=== PATIENT | male | born 1975 | race Caucasian/White ===

== ENCOUNTER → 2024-07-20 | Outpatient (CLI) | payer BC, SELFPAY ==
[2024-07-20 14:19] LABS: Collection Type, Urine Clean Catch; RBC,Urine 0 /hpf (0-3); Squamous Epithelial Cell,Urine 0 /hpf (0-5)
[2024-07-20 15:27] LABS: Bilirubin,Urine Negative (Negative); Blood,Urine Negative (Negative); Clarity,Urine Clear (Clear/Hazy); Color,Urine Colorless (Lt Yel-Yel); Glucose, Urine Negative (Negative); Ketones,Urine Negative (Negative); Leukocyte Esterase,Urine Negative (Negative); Nitrite,Urine Negative (Negative); PH,Urine 5.5 (5.0-7.0); Protein,Urine Negative (Neg - Trace); Specific Gravity,Urine 1.012 (1.001-1.035); Urobilinogen,Urine Negative mg/dL (0.0-1.0); WBC,Urine < 1 /hpf (0-5)
== END | disposition home or self-care (01) ==
LOC: SLDO 14:15
PROVIDERS: Referring Provider Family Medicine; Visit Provider Family Medicine
DX: N39.0 Urinary tract infection, site not specified (principal)
CPT/HCPCS: 81001; 87086

== ENCOUNTER → 2024-08-29 | Outpatient (CLI) | payer BC, SELFPAY ==
[2024-08-29 09:04] LABS: Anion Gap 7 (7-16); BUN/Creatinine Ratio 21 Ratio (12-20); Blood Urea Nitrogen 25 mg/dL (9-23); Calcium 9.7 mg/dL (8.3-10.6); Chloride 105 mMol/L (98-107); Creatinine (Component) 1.2 mg/dL (0.6-1.3); Glucose 103 mg/dL (74-106); Osmolality,Calculated 281 (275-295); Potassium 4.6 mMol/L (3.4-5.1); Sodium 139 mMol/L (136-145); eGFR > 60 See Note
== END | disposition home or self-care (01) ==
PROVIDERS: PCP Family Medicine; Referring Provider Nurse Practitioner Family; Visit Provider Nurse Practitioner Family
DX: I10 Essential (primary) hypertension (principal)
CPT/HCPCS: 36415; 80048

== ENCOUNTER → 2025-02-05 | Outpatient (CLI) | payer BC, SELFPAY ==
[2025-02-05 10:08] LABS: Collection Type, Urine Clean Catch; Squamous Epithelial Cell,Urine 0 /hpf (0-5)
[2025-02-05 10:31] LABS: Basophils # (Auto) 0.1 Thou/mm3 (0.0-0.2); Basophils % (Auto) 2 % (0-2.5); Eosinophils # (Auto) 0.1 Thou/mm3 (0.0-0.5); Eosinophils % (Auto) 3 % (0-10); Hematocrit 45.6 % (41.0-53.0); Hemoglobin 16.2 g/dL (13.5-16.0); Immature Granulocytes % (Auto) 0 % (0-0); Immature Granulocytes Auto 0.01 Thou/mm3 (0.00-0.00); Lymphocytes # (Auto) 2.3 Thou/mm3 (1.0-4.8); Lymphocytes % (Auto) 44 % (10-50); Mean Corpuscular HGB Conc 35.5 g/dl (31.0-37.0); Mean Corpuscular Hemoglobin 30.1 pg (25.0-35.0); Mean Corpuscular Volume 85 fL (80-100); Monocytes # (Auto) 0.3 Thou/mm3 (0.0-0.8); Monocytes % (Auto) 6 % (0-12); Neutrophils # (Auto) 2.4 Thou/mm3 (1.8-7.7); Neutrophils % (Auto) 46 % (37-80); Nucleated Red Blood Cell % 0 /100 WBC (0); Platelet Count 197 Thou/mm3 (140-440); RDW Standard Deviation 38.7 fL (35.1-43.9); Red Blood Count 5.39 Miln/mm3 (4.50-5.90); White Blood Count 5.3 Thou/mm3 (3.8-10.6)
[2025-02-05 10:41] LABS: Bilirubin,Urine Negative (Negative); Blood,Urine Negative (Negative); Clarity,Urine Clear (Clear/Hazy); Color,Urine Lt-Yellow (Lt Yel-Yel); Culture Indicated,Urine Not Indicated; Glucose, Urine Negative (Negative); Ketones,Urine Negative (Negative); Leukocyte Esterase,Urine Negative (Negative); Nitrite,Urine Negative (Negative); Protein,Urine Negative (Neg - Trace); RBC,Urine 1 /hpf (0-3); Specific Gravity,Urine 1.024 (1.001-1.035); Urobilinogen,Urine Negative mg/dL (0.0-1.0); WBC,Urine 1 /hpf (0-5)
[2025-02-05 10:48] LABS: Alanine Aminotransferase 50 U/L (10-49); Albumin, Serum 4.5 gm/dL (3.5-5.0); Albumin/Globulin Ratio 2.1 (1.2-2.2); Alkaline Phosphatase 91 U/L (46-116); Anion Gap 8 (7-16); Aspartate Amino Transferase 32 U/L (0-34); BUN/Creatinine Ratio 19 Ratio (12-20); Bilirubin,Total 0.9 mg/dL (0.3-1.2); Blood Urea Nitrogen 21 mg/dL (9-23); Calcium 9.2 mg/dL (8.3-10.6); Calcium (Corrected) 9.2 mg/dL (8.5-10.1); Carbon Dioxide 28.1 mMol/L (20.0-31.0); Chloride 105 mMol/L (98-107); Cholesterol 219 mg/dL (132-200); Creatinine (Component) 1.1 mg/dL (0.6-1.3); Globulin 2.1 gm/dL (2.3-3.5); Glucose 95 mg/dL (74-106); HDL Cholesterol 44 mg/dL (40-60); LDL Cholesterol,Calculated 148 mg/dL (0-130); Osmolality,Calculated 284 (275-295); Potassium 4.6 mMol/L (3.4-5.1); Sodium 141 mMol/L (136-145); Thyroid Stimulating Hormone 2.64 uIU/mL (0.55-4.78); Total Protein 6.6 gm/dL (5.7-8.2); Triglycerides 135 mg/dL (30-150); eGFR > 60 See Note
[2025-02-05 10:54] LABS: Prostate Specific Antigen 2.47 ng/mL (0-4.00)
[2025-02-05 10:55] LABS: Vitamin D 25 Hydroxy Total 33.9 ng/mL (7.3-40.2)
== END | disposition home or self-care (01) ==
LOC: COPL 09:35
PROVIDERS: PCP Family Medicine; Referring Provider Nurse Practitioner Family; Visit Provider Nurse Practitioner Family
DX: Z00.00 Encounter for general adult medical examination without abnormal findings (principal)
CPT/HCPCS: 36415; 80053; 80061; 81001; 82306; 84153; 84443; 85025

== ENCOUNTER → 2025-07-18 | Outpatient (CLI) | payer BC, SELFPAY ==
[2025-07-18 11:16] LABS: Alanine Aminotransferase 60 U/L (10-49); Albumin, Serum 4.7 gm/dL (3.5-5.0); Albumin/Globulin Ratio 2.9 (1.2-2.2); Alkaline Phosphatase 80 U/L (46-116); Anion Gap 10 (7-16); Aspartate Amino Transferase 41 U/L (0-34); BUN/Creatinine Ratio 13 Ratio (12-20); Bilirubin,Total 1.0 mg/dL (0.3-1.2); Blood Urea Nitrogen 14 mg/dL (9-23); Calcium 9.1 mg/dL (8.3-10.6); Calcium (Corrected) 9.1 mg/dL (8.5-10.1); Carbon Dioxide 23.9 mMol/L (20.0-31.0); Cardiac Risk Estimate 4.7 RATIO (4.0-6.7); Chloride 107 mMol/L (98-107); Cholesterol 188 mg/dL (132-200); Creatinine (Component) 1.1 mg/dL (0.6-1.3); Globulin 1.6 gm/dL (2.3-3.5); Glucose 93 mg/dL (74-106); HDL Cholesterol 40 mg/dL (40-60); LDL Cholesterol,Calculated 130 mg/dL (0-130); Osmolality,Calculated 281 (275-295); Potassium 4.3 mMol/L (3.4-5.1); Sodium 141 mMol/L (136-145); Total Protein 6.3 gm/dL (5.7-8.2); Triglycerides 88 mg/dL (30-150); eGFR > 60 See Note
== END | disposition home or self-care (01) ==
LOC: COPL 09:55
PROVIDERS: PCP Nurse Practitioner Family; Referring Provider Nurse Practitioner Family; Visit Provider Nurse Practitioner Family
DX: E78.2 Mixed hyperlipidemia (principal); R74.01 Elevation of levels of liver transaminase levels
CPT/HCPCS: 36415; 80053; 80061

== ENCOUNTER 2025-08-01 15:23 | Inpatient (IN) | payer BC, SELFPAY ==
[2025-08-01] VITALS (10 sets, daily range): BP systolic 126–164; BP diastolic 81–92; PULSE 63–80; RESP 16–96; TEMP 36.7–36.9; O2SAT 95–97; BMI 33.7; BMI 32.9
--- NOTE | 2025-08-01 15:33 | EKG_ITS ---
[facility] Test Date: 2025-08-01 Pat Name: BRET QUEVEDO Department: Room: - Gender: Male Media Assistant: : 1975 Requested By: Teja Montero (RENATO) Order Number: [id number] Reading MD: Teja Montero (FIREPERSON) Measurements Intervals [place] Rate: 79 P: 34 SD: 197 QRS: 17 QRSD: 117 T: 33 QT: 367 QTc: 422 Interpretive Statements SINUS RHYTHM WITH SINUS ARRHYTHMIA INCOMPLETE RIGHT BUNDLE BRANCH BLOCK [90+ ms QRS DURATION, TERMINAL R IN V1/V2, 40+ ms S IN I/aVL/V4/V5/V6] No previous ECG available for comparison /store/S0/[id number].pdf
--- NOTE | 2025-08-01 15:44 | XR_ITS ---
EXAMINATION: AP chest single view TECHNIQUE: AP portable upright chest single view Date and time: August 01, 2025, 1547 hours INDICATIONS: Shortness of breath today. FINDINGS: Normal heart size Lungs are clear. Osseous structures are intact IMPRESSION: No active disease
[2025-08-01 16:16] LABS: Basophils # (Auto) 0.1 Thou/mm3 (0.0-0.2); Basophils % (Auto) 2 % (0-2.5); Eosinophils # (Auto) 0.1 Thou/mm3 (0.0-0.5); Eosinophils % (Auto) 2 % (0-10); Hematocrit 46.2 % (41.0-53.0); Hemoglobin 16.1 g/dL (13.5-16.0); Immature Granulocytes Auto 0.01 Thou/mm3 (0.00-0.00); Lymphocytes # (Auto) 1.6 Thou/mm3 (1.0-4.8); Lymphocytes % (Auto) 32 % (10-50); Mean Corpuscular HGB Conc 34.8 g/dl (31.0-37.0); Mean Corpuscular Hemoglobin 29.7 pg (25.0-35.0); Mean Corpuscular Volume 85 fL (80-100); Monocytes # (Auto) 0.2 Thou/mm3 (0.0-0.8); Monocytes % (Auto) 4 % (0-12); Neutrophils # (Auto) 3.0 Thou/mm3 (1.8-7.7); Neutrophils % (Auto) 60 % (37-80); Nucleated Red Blood Cell # 0.00 Thou/mm3 (0.00-0.00); Nucleated Red Blood Cell % 0 /100 WBC (0); Platelet Count 202 Thou/mm3 (140-440); RDW Standard Deviation 37.8 fL (35.1-43.9); Red Blood Count 5.43 Miln/mm3 (4.50-5.90); White Blood Count 5.1 Thou/mm3 (3.8-10.6)
--- NOTE | 2025-08-01 16:16 | EDNOTE_ITS ---
ED Chest Pain RME/HPI General Chief Complaint: Chest Pain Stated Complaint: SENT BY PCP FOR CP Time Seen by Provider: 08/01/25 15:43 Arrival date/time: 08/01/25 15:23 RME / HPI RME / HPI narrative: 50 year old male with history of hypertension presents to the ED referred by his PCP for evaluation of chest pain today. Patient states his pain began while walking at work. Described as sharp in sensation, rating 5/10 in severity at its worst. Located most to the center of his chest with radiation up to his neck, lasting a few minutes. States he consulted his PCP who performed an EKG and labs in office showing abnormalities and advised to come to the ED for further evaluation. Denied any associated sweating, cough, shortness of breath, abdominal pain, nausea, or vomiting. Though does report dizziness and headache (chronically) and unchanged from his baseline. Denies any known cardiac history. Denies any leg swelling. Since arriving to the ED, patient states his pain is 0/10. Denies alcohol or drug use. Related Data Previous Rx's ?Medication ?Instructions ?Recorded Oxycodone/Acetaminophen (Percocet) 1 tab PO Q6HR PRN P AIN SCALE 4-6 07/22/16 (Moderate #20 tabs Allergies Allergy/AdvReac Type Severity Reaction Status Date / Time NKA* Allergy Uncoded 08/01/25 15:25 Review of Systems Review of Systems Systems Reviewed: All systems reviewed, normal except as documented Past Medical History Past Medical History CARDIAC: Positive Hypertension Surgical History SURGICAL: Positive Hip Sx and of Back Surgery Social History SMOKING STATUS: Never smoker ED Exam Narrative Physical exam: Constitutional: Awake, alert, nontoxic, no acute distress HEENT: Normocephalic, atraumatic, extraocular movements intact. Neck: Supple CV: Regular rate and rhythm, no murmurs/rubs/gallops Lungs: Clear to auscultation BL, no respiratory distress. Abd: Soft, NT, ND, no HSM noted to palpation Extremities: No deformities, no edema noted Neuro: AAOx3, CN 2-12 GIBL, no acute neuro deficit noted. Skin: Warm, dry, intact Course Course Course Narrative: 1651h: I spoke with medical accountant Dr. Rosales. Discussed patients PMHx, HPI, ED course, exam findings, labs, and radiology results. He agrees to consult. 1655h: I spoke with hospitalist team B for admission. Quality Measures none Orders Category Date Time Status COVID-19 Screening Questionnaire NOW Care 08/01/25 16:54 Active Sales Process Manager NOW Care 08/01/25 15:33 Active Decision to Admit X1 Care 08/01/25 16:54 Completed EKG (ED ONLY) *Do not use* NOW Care 08/01/25 15:33 Completed EKG (ED Only) Stat Exams 08/01/25 15:33 Draft XR chest 1V portable Stat Exams 08/01/25 15:44 Completed B-Type Natriuretic Peptide Stat Lab 08/01/25 16:05 Completed CBC Stat Lab 08/01/25 16:05 Completed Comprehensive Metabolic Panel Stat Lab 08/01/25 16:05 Completed Drug Screen,Urine Stat Lab 08/01/25 15:33 Ordered Magnesium Stat Lab 08/01/25 16:05 Completed Partial Thromboplastin Time Stat Lab 08/01/25 16:05 Completed Prothrombin Time with INR Stat Lab 08/01/25 16:05 Completed Troponin I Stat Lab 08/01/25 16:05 Completed Urinalysis, C/S if Indicated Stat Lab 08/01/25 15:33 Ordered Aspirin Chew Med 08/01/25 16:48 Discontinued 324 mg PO X1 ONE Vital Signs Vital signs: Vital Signs Temperature 98.1 F 08/01/25 15:43 Pulse Rate 80 08/01/25 15:43 Respiratory Rate 18 08/01/25 15:43 Blood Pressure 144/83 H 08/01/25 15:43 Pulse Oximetry (%) 96 08/01/25 15:43 Oxygen Delivery Method Room Air 08/01/25 15:43 Pulse ox is 96% on room air which is adequate. Chest Pain MDM Narrative MDM Narrative:: Marisol Tobar am scribing for and in the presence of Dr. Salas. Patient data External records reviewed:: None (No previous records for review ) Clinical information provided by:: patient Social determinants that could affect healthcare access:: none Patient has the following chronic illnesses:: Hypertension How is presenting disease/condition affected by chronic disease/condition?: exacerbated by Evaluation data The following diagnostics were reviewed and interpreted by me:: lab results, radiology exam(s) and EKG tracing(s) (EKG @ 15:39h, interpreted by me, sinus rhythm, rate 79, incomplete right bundle branch block, ST depression in V3, T- wave flattening in lead III. ) Lab and/or radiology exams considered but not ordered:: None Interpretation Summary: Ordering Physician: Winston GARY),Teja GROSS Date of Service: 08/01/25 Procedure(s): XR chest 1V portable Accession Number(s): [id number] cc: Winston GARY),Teja GROSS; Simón Morris MD~ EXAMINATION: AP chest single view TECHNIQUE: AP portable upright chest single view Date and time: August 01, 2025, 1547 hours INDICATIONS: Shortness of breath today. FINDINGS: Normal heart size Lungs are clear. Osseous structures are intact IMPRESSION: No active disease Dictated By: Simón Morris MD Signed By: <Electronically signed by Simón Morris MD in OV>08/01/25 1555 Medications / Prescriptions Medications or Prescriptions considered but not ordered:: none Medication administrations:: Medication Administration History Atorvastatin Calcium (Atorvastatin Calcium 20 Mg Tablet) 80 mg PO HS DARREN Stop: 09/01/25 20:59 Heparin Sodium/Dextrose (Heparin In D5w Ivpb) 25,000 unit in 250 mls @ 10.043 mls/hr IV .Q24H DARREN; Protocol Stop: 08/15/25 17:29 Discontinued Medications Aspirin (Aspirin 81 Mg Chew) 324 mg PO X1 ONE Stop: 08/01/25 16:49 Last Admin: 08/01/25 17:07 Dose: 324 mg Documented By: EF Atorvastatin Calcium (Atorvastatin Calcium 20 Mg Tablet) 80 mg PO X1 ONE Stop: 08/01/25 17:26 Clopidogrel Bisulfate (Clopidogrel Bisulfate 75 Mg Tablet) 300 mg PO X1 ONE Stop: 08/01/25 17:23 Heparin Sodium (Porcine) (Heparin Sod Inj 5000 Unit/Ml Vial) 4,000 unit IV X1 ONE; Protocol Stop: 08/01/25 17:23 See above Consultations Consultation(s) initiated? (list below): Yes Consultation #1 (Physician, Specialty, Details): See course Diagnosis Most likely diagnosis given after review of the tests above:: NSTEMI Admission Indicated Admission indicated?: indicated Admission Request Was there a request for admission?: Yes Admission Attestation Admission request attestation: Discussed case with [] from Hospitalist service regarding admission. Discussed patients ED course, exam findings, labs, and radiology results. The Hospitalist [agrees,declines] to accept the patient for admission. Disposition Plan Disposition Plan: Admit Discharge Plan Plan Patient Disposition: Admit Acute Care w/in Hospital Problem List Clinical Impression: Non-ST elevation NC (NSTEMI)
[2025-08-01 16:30] LABS: INR 1.0 (0.9-1.3); Partial Thromboplastin Time 28.5 Seconds (22.0-36.0); Prothrombin Time 10.5 Seconds (9.0-12.2)
[2025-08-01 16:32] LABS: B-Type Natriuretic Peptide 24 pg/mL (0-100)
[2025-08-01 16:36] LABS: Alanine Aminotransferase 46 U/L (10-49); Albumin, Serum 4.8 gm/dL (3.5-5.0); Albumin/Globulin Ratio 2.7 (1.2-2.2); Alkaline Phosphatase 86 U/L (46-116); Anion Gap 7 (7-16); Aspartate Amino Transferase 30 U/L (0-34); BUN/Creatinine Ratio 15 Ratio (12-20); Bilirubin,Total 0.7 mg/dL (0.3-1.2); Blood Urea Nitrogen 19 mg/dL (9-23); Calcium 9.3 mg/dL (8.3-10.6); Calcium (Corrected) 9.3 mg/dL (8.5-10.1); Carbon Dioxide 27.1 mMol/L (20.0-31.0); Chloride 107 mMol/L (98-107); Creatinine (Component) 1.3 mg/dL (0.6-1.3); Estimated Creatinine Clearance 95.9 mL/min (>60); Globulin 1.8 gm/dL (2.3-3.5); Glucose 189 mg/dL (74-106); Magnesium 2.2 mg/dL (1.6-2.6); Osmolality,Calculated 288 (275-295); Potassium 3.9 mMol/L (3.4-5.1); Sodium 141 mMol/L (136-145); Total Protein 6.6 gm/dL (5.7-8.2); eGFR > 60 See Note
[2025-08-01 16:39] LABS: Troponin I 0.086 ng/mL (0.0-0.045)
--- NOTE | 2025-08-01 16:54 | ESCONSULT_ITS ---
<Statement entered by Holland Rosales MD - 08/02/25 17:23> The patient personally examined evaluated by me in the emergency department with resident physician team Dr. Julian Causey and evaluate the patient in detail history physical examination all essential components were reviewed by me in presence of me patient clearly has history of hypertension came to the hospital significant chest discomfort mild troponin elevation suspicion for acute coronary syndrome after discussion with emergency room physician aspirin Plavix and heparin will be ordered beta-karl as tolerated and high-dose statin therapy to be continued her chest pain no further episodes of angina evaluation will require coronary angiogram. All essential components reviewed spent more than 45 minutes ago and all issues and questions concerns with the family as well I will monitor the patient closely evaluate patient and treatment plan recommendation will be discussed agree with treatment plan recommend as documented by resident physician. HPI Data of Consult Primary Care Provider: Jaycee Milner NP Consult Narrative Reason for consult: Chest pain History of present illness: 50-year-old male with past medical history of hypertension, hypercholesterolemia, MASLD presenting to the ED on 08/01 with an episode of chest pain. Patient states that sometime around this morning patient felt a sharp chest discomfort localized around the central part of his chest which lasted about 2 minutes or so. Patient apparently had a appointment with his PCP and was able to go to that appointment and had blood work and EKG completed. Apparently went home but was called back by PCP who told him based off his blood work to go to the ED. Patient notes that on his way back to the ED he did have mild chest tightness which lasted several minutes but he currently does not have any pain. Patient describes the pain as a tight bandlike sensation with some radiation to the jaw but not to the arms. Patient has never felt this type of pain in the past and denies ever seeing a carton folder. Patient also denies having any family history of heart disease, heart attack, sudden cardiac or stroke. He was told by his PCP that his cholesterol is mildly elevated but his PCP did not start a cholesterol medication. Patient otherwise denies having any palpitations, shortness of breath, orthopnea, paroxysmal nocturnal dyspnea or lower extremity swelling. 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 Pertinent lab findings included troponin which was initially 0.060 and uptrending to 0.086, BNP of 24, chest x- ray showed no active disease and EKG showed incomplete right bundle branch block without any concerning ST changes. Cardiology has been consulted for the workup of possible ACS, NSTEMI type I versus type II. cc:: cc: Exam Vital Signs Temp Pulse Resp BP Pulse Ox O2 Del Method 98.5 F 69 16 146/92 H 97 Room Air 08/01/25 16:32 08/01/25 16:32 08/01/25 16:32 08/01/25 16:32 08/01/25 16:32 08/01/25 16:32 Narrative Exam Physical Exam: GENERAL: Awake, answers questions appropriately, appears stated age HEENT: NC/AT. Moist mucosa. PERRLA/EOMI. right eye mild ecchymosis CARDIO: Heart RRR, no obvious murmurs, no JVD. PULM: No coughing or visible SOB. Lungs CTA B/L. GI: Abdomen soft, NT/ND, +BS. SKIN/MSK/EXT: Extensive tattoos on bilateral upper extremities, no wounds/discoloration/rashes/edema/amputations noted. +Pedal pulses present B/L. NEURO: Oriented x3, Moves extremities x4, no focal neurologic deficits noted Results Labs 08/01/25 16:05 08/01/25 16:05 Labs: Short CBC 08/01/25 Range/Units 16:05 WBC 5.1 (3.8-10.6) Thou/mm3 Hgb 16.1 H (13.5-16.0) g/dL Hct 46.2 (41.0-53.0) % Plt Count 202 (140-440) Thou/mm3 BMP 08/01/25 16:05 Sodium 141 Potassium 3.9 D Chloride 107 Carbon Dioxide 27.1 BUN 19 Creatinine 1.3 Glucose 189 H D Calcium 9.3 Cardiac Enzymes 08/01/25 Range/Units 16:05 Troponin I 0.086 H* (0.0-0.045) ng/mL Liver Function 08/01/25 Range/Units 16:05 Total Bilirubin 0.7 (0.3-1.2) mg/dL AST 30 (0-34) U/L ALT 46 (10-49) U/L Alkaline Phosphatase 86 (46-116) U/L Albumin 4.8 (3.5-5.0) gm/dL Quality Measures Quality Measures VTE prophylaxis Medications Home Medications and Allergies Home Medications ?Medication ?Instructions ?Recorded ?Confirmed ?Type amlodipine 5 mg-benazepril 10 mg 1 cap PO DAILY 08/01/25 History capsule Allergies Allergy/AdvReac Type Severity Reaction Status Date / Time NKA* Allergy Uncoded 08/01/25 15:25 Visit Medications Discontinued Medications Aspirin (Aspirin 81 Mg Chew) 324 mg PO X1 ONE Stop: 08/01/25 16:49 Assessment & Plan Plan 50-year-old male with past medical history of hypertension, hypercholesterolemia, MASLD presenting to the ED with an episode of chest pain, will be admitted for the workup of acute coronary syndrome with cardiology consultation. #ACS, rule out #NSTEMI type I versus type II 59-72?points ALEX Score 1-1.6?% Probability of from admission to 6 months 5.4% Risk of cardiovascular event (coronary or stroke or non-fatal PA or stroke) in next 10 years. As per HPI noted above, patient's chest pain does not sound typical as it only lasted less than 2 minutes Patient does have a risk factor of high blood pressure, obesity but apparently lives a pretty active lifestyle and does not get any chest discomfort on activity In the ED, patient had mild elevation of troponin which is uptrending but still not significant Chest x-ray was negative EKG showed incomplete right bundle branch block without any concerning ST changes Plan: Continue trending troponin until it peaks and downtrends Admit for observation Continue IV heparin drip DAPT with Plavix 75 mg p.o. daily and aspirin 81 mg p.o. daily, after loading dose High intensity statin Consider obtaining results of lipid panel from PCP, A1c and TSH Keep magnesium above 2 and potassium above 4 If patient continues to have recurrent chest pain and/or troponin continues to increase substantially, keep patient n.p.o. after midnight for possible left heart cath If patient does not have recurrent chest pain and/or troponin does not go any higher, can possibly discharge safely with close follow-up outpatient for stress test #Hypertension, primary Chronic medical condition Patient is apparently on Amlodipine 5?benazepril 10 mg capsule Plan: Continue monitoring blood pressure Restart home medications when appropriate #Hyperlipidemia #MASLD #Obesity Rest of medical problems to be managed by hospitalist team Patient seen and assessed with attending Dr. Bobby Causey, DO PGY-2 Internal Medicine - GME
[2025-08-01] MEDS: ASPIRIN 81 MG CHEW 324 MG PO (17:07)
--- NOTE | 2025-08-01 17:52 | ESHP_ITS ---
<Statement entered by Humble Blue MD - 08/03/25 18:20> Patient was seen and examined at bedside. I agree on the assessment and plan on this note as documented by resident Dr Sohan Lynch DO PGY1. 50-year-old male with past medical history of hypertension hypercholesterolemia and MASLD presented to [facility] emergency department with a chief complaint of chest pain. Patient was seen by primary care physician outpatient for chest pain for which troponin level was obtained which was elevated and patient was sent to ER for further workup. On the way to ER patient reported another episode of chest pain, retrosternal pressure-like lasting for less than 1 minute. EKG in ER shows no acute ST-T changes however some T wave inversion noted in lead III and V1, troponin elevated at 0.086 which is currently uptrending. Automatic Presser Dr. Rosales was consulted in the ER who recommended loading aspirin Plavix and heparin gtt. which was started. Patient will be kept n.p.o. after midnight in case any further intervention is needed otherwise patient is currently denying any chest pain. Case discussed with attending Dr. Eddy Blue MD PGY-2 Documentation for date of: 08/01/25 HPI History of Present Illness History of present illness: HPI: 50-year-old male with medical history of hypertension, hypercholesterolemia, and MASLD presented to the ED on 08/01 after being instructed by his PCP for abnormal LFTs on EKG and labs. Patient states that at about 1130 this morning, he developed sharp chest pain across his chest and radiating to his neck and staying there, without traveling to the jaw or shoulders or the arms, And lasting for a few minutes only. Patient later made to an appointment with his PCP, who did an EKG and lab work at office. Patient was told that his troponin had been elevated when results became available after the patient had left. He was recommended to go to ED and for the workup of possible ACS. Patient also states that on his way to the ED, he had chest tightness for 2 to 3 minutes. He denies any chest pain, shortness of breath, palpitations, dizziness, lightheadedness, orthopnea, or history of heart disease. He has intermittent cough which he attributes to recent sinusitis. ED Course: VSS BP 146/92, HR 69, RR 16, T98.5, O2 97% in RA. Labs showed WBC 5.1, Hgb 16.1, CMP glucose 189, troponin 1.060 which trended up to 0.086 in 4 hours, BNP 24. Patient was given aspirin 324 mg to chew, clopidogrel 300 mg orally, heparin loading dose and drip, atorvastatin 80 mg. Chest x-ray showed no active disease. Normal heart size, clear lungs, and intact osseous structures EKG showed normal sinus rhythm, incomplete right bundle branch block T wave inversion in lead III and V1. Deep Q waves in lead III. Meds: Amlodipine-benazepril 5-10 mg daily Allergy: [none] PMHx: [see HPI above]. PSHx: Orthopedic repair surgeries of hip and right arm Fam Hx: Noncontributory, denies sudden cardiac or cardiac surgeries among family members Soc Hx: Non-smoker. Quit drinking 1 week ago, previously drank 1-2 beers weekly. Denies using marijuana, or illicit drugs. Exam Vital Signs Temp Pulse Resp BP Pulse Ox O2 Del Method 98.5 F 69 16 146/92 H 97 Room Air 08/01/25 16:32 08/01/25 16:32 08/01/25 16:32 08/01/25 16:32 08/01/25 16:32 08/01/25 16:32 Narrative Exam General: Alert and oriented x3, No apparent distress. Skin: Intact, Warm, no rashes. HEENT: Normocephalic, Atraumatic. Normal neck range of motion, Supple. Trachea midline. Respiratory: Lungs are clear to auscultation. Breath sounds are equal bilaterally with good, symmetric chest expansion. Cardiovascular: RRR, normal S1, S2, No murmurs. Distal pulses 2+ Abdomen: Abdomen non-distended, without erythema, or lesions. Normotensive bowel sounds x4. Percussion tympanic. Palpation soft, nontender in all four quadrants. No organomagely. Absent rigidity, guarding, or rebound. Musculoskeletal/Extremities: No erythema, swelling, tenderness of any joints. No edema of BLE. DP pulses +2/3 b/l. Full active ROM of all four extremities. Neurologic: NEURO: Oriented x3, cranial nerves II to XII grossly intact. Muscle strength 5/5 on UE and LE b/l, Moves extremities x4. Sensation intact to gross touch along C6-T1 and L2-S1 dermatomes. No focal neurologic deficits noted Psych: Thoughts linear and responses appropriate. Results: Labs 08/02/25 06:35 08/02/25 06:35 Labs: Short CBC 08/01/25 Range/Units 16:05 WBC 5.1 (3.8-10.6) Thou/mm3 Hgb 16.1 H (13.5-16.0) g/dL Hct 46.2 (41.0-53.0) % Plt Count 202 (140-440) Thou/mm3 BMP 08/01/25 16:05 Sodium 141 Potassium 3.9 D Chloride 107 Carbon Dioxide 27.1 BUN 19 Creatinine 1.3 Glucose 189 H D Calcium 9.3 Cardiac Enzymes 08/01/25 Range/Units 16:05 Troponin I 0.086 H* (0.0-0.045) ng/mL Liver Function 08/01/25 Range/Units 16:05 Total Bilirubin 0.7 (0.3-1.2) mg/dL AST 30 (0-34) U/L ALT 46 (10-49) U/L Alkaline Phosphatase 86 (46-116) U/L Albumin 4.8 (3.5-5.0) gm/dL Quality Measures Quality Measures VTE prophylaxis Medications Home Medications and Allergies Home Medications ?Medication ?Instructions ?Recorded ?Confirmed ?Type amlodipine 5 mg-benazepril 10 mg 1 cap PO DAILY 08/01/25 History capsule Allergies Allergy/AdvReac Type Severity Reaction Status Date / Time No Known Allergies Allergy Unverified 08/02/25 10:51 Visit Medications Atorvastatin Calcium (Atorvastatin Calcium 20 Mg Tablet) 80 mg PO HS DARREN Stop: 09/01/25 20:59 Heparin Sodium/Dextrose (Heparin In D5w Ivpb) 25,000 unit in 250 mls @ 10.043 mls/hr IV .Q24H DARREN; Protocol Stop: 08/15/25 17:29 Discontinued Medications Aspirin (Aspirin 81 Mg Chew) 324 mg PO X1 ONE Stop: 08/01/25 16:49 Last Admin: 08/01/25 17:07 Dose: 324 mg Atorvastatin Calcium (Atorvastatin Calcium 20 Mg Tablet) 80 mg PO X1 ONE Stop: 08/01/25 17:26 Clopidogrel Bisulfate (Clopidogrel Bisulfate 75 Mg Tablet) 300 mg PO X1 ONE Stop: 08/01/25 17:23 Heparin Sodium (Porcine) (Heparin Sod Inj 5000 Unit/Ml Vial) 4,000 unit IV X1 ONE; Protocol Stop: 08/01/25 17:23 Assessment & Plan Plan 50-year-old male with medical history of hypertension, hypercholesterolemia, and MASLD presented to the ED on 08/01 after being instructed by his PCP for abnormal findings on EKG and labs. Patient admitted for work up of possible NSTE-ACS. #Acute Coronary Syndrome #NSTEMI likely type I vs type II #Chest Pain #Troponinemia Chest x-ray showed no active disease. Normal heart size, clear lungs, and intact osseous structures EKG showed normal sinus rhythm, incomplete right bundle branch block T wave inversion in lead III and V1. Deep Q waves in lead III. ASCVD risk pending lipid panel Patient given KCl PO 20mEq for K+ 3.9 troponin 1.060 which trended up to 0.086 in 4 hours Plan: - Cardiology, Dr Rosales consulted, appreciate recs - Started therapeutic anticoagulation with UFH per ACS protocol, 12u/kg/h, with IVB 4000u - Aspirin PO 324mg to chew (loading dose) - Clopidogrel PO 300mg (loading dose) - Metoprolol succinate PO 25mg - Atorvastatin PO 80mg - Troponin checks Q6h - Echo ordered for assessment of wall motion abnormalities - Lipid panel, HgbA1c, TSH with morning labs - Maintain K+ >4 and Mg >2 - NPO after midnight for likely routine PCI in AM - Continuous pulse oxometry - Strict I&O - Admit to Telemetry - O2 delivery through NC 2L PRN #Hypertension Patient is on amlodipine-benazapril 5-10mg at home will hold home antihypertensive as patient was given metoprolol succinate 25mg x1 #MASLD -to be followed as outpatient Health Maintenance: Disposition: Telemetry monitoring Diet: cardiac, NPO after midnight PPx DVT: heparin per ACS protocol PPx GI: [] Code Status: full This case was discussed with my attending physician, Dr. Niño, and senior resident, Dr Blue. Sohan Lynch, DO PGY I Disclaimer: This note was dictated by speech recognition. Minor errors in ballet teacher may be present due to voice recognition software. Attending Provider Attestation/Addendum I have seen and examined the patient. I was physically present for the funes portions of the services provided including history, physical exam, diagnosis, treatment plans and orders. I agree with assessment and plan of care as documented by residents. After examination of the patient and review of the clinical data I feel that this patient needs admission to the hospital for further treatment/evaluation. Even though this this note was carefully revised there may still be minor errors in ballet teacher due to voice recognition software. Eddy Niño MD
[2025-08-01] MEDS: CLOPIDOGREL BISULFATE 75 MG TABLET 300 MG PO (18:00)
[2025-08-01] MEDS: HEPARIN SOD INJ 5000 UNIT/ML VIAL 4000 UNIT IV (18:01)
[2025-08-01] MEDS: Heparin/D5w 25K 250 ML Ivpb 25,000 UNIT/250 ML BAG 10.043 UNIT IV (18:01)
[2025-08-01] MEDS: ATORVASTATIN CALCIUM 20 MG TABLET 80 MG PO (18:01)
--- NOTE | 2025-08-01 18:43 | ECHO_ITS ---
Patient Info Name: Dave Zuniga Age: 50 years : 1975 Gender: Male Ht: 191 cm Wt: 122 kg BSA: 2.58 m2 BP: 145 / 85 mmHg HR: 65 bpm Exam Date: 08/02/2025 8:35 AM Admit Date: 08/01/2025 Site: [facility] Room Number: [id number] Patient Status: I Technical Quality: Fair Exam Type: CA echo doppler complete Fuel Operator: Sharon Bhatti Ordering Physician: Humble Blue Study Info Indications ACS, rule out wall motion abnormalities - Primary Location: [id number] Left Ventricular Outflow Tract Name Value Normal LVOT 2D LVOT Diameter 1.9 cm LVOT Doppler LVOT Peak Velocity 132 cm/s LVOT Mean Gradient 4 mmHg LVOT VTI 28 cm LVOT VTI/AV VTI Ratio 1.1 LVOT Stroke Volume 80 ml Pulmonic Valve Name Value Normal PV Doppler PV Peak Velocity 119 cm/s Mitral Valve Name Value Normal MV Doppler MV Decel [place] 228 cm/s2 MV PHT 69 ms MV Area (PHT) 3.2 cm2 4.0-5.0 MV Diastolic Function MV E Peak Velocity 55 cm/s MV A Peak Velocity 71 cm/s MV E/A 0.8 MV Annular TDI MV Septal e' Velocity 6.4 cm/s MV E/e' (Septal) 8.5 MV Lateral e' Velocity 10.9 cm/s MV E/e' (Lateral) 5.0 MV e' Average 8.66 cm/s MV E/e' (Average) 6.7 Tricuspid Valve Name Value Normal TV Regurgitation Doppler TR Peak Velocity 148 cm/s Estimated PAP/RSVP RA Pressure 8 mmHg <=5 PA Systolic Pressure 17 mmHg <36 RV Systolic Pressure 17 mmHg <36 Aorta Name Value Normal Ascending Aorta Prox Asc Ao Diameter 3.7 cm 2.6-3.4 Prox Asc Ao Diameter Index 1.4 cm/m2 1.3-1.7 Aortic Valve Name Value Normal AV 2D/MM AV Cusp Sep (MM) 1.6 cm AV Doppler AV Peak Velocity 122 cm/s AV Mean Gradient 3 mmHg AV VTI 25 cm AV Area (Cont Eq VTI) 3.2 cm2 >=3.0 AV Area (Cont Eq Alexey) 3.1 cm2 AV DI (Alexey) 1.08 AV Regurgitation 2D LVOT Area 2.8 cm2 Ventricles Name Value Normal LV Dimensions 2D/MM IVS Diastolic Thickness (2D) 1.1 cm 0.6-1.0 LVID Diastole (2D) 5.1 cm 4.2-5.8 LVIW Diastolic Thickness (2D) 1.1 cm 0.6-1.0 LVID Systole (2D) 3.2 cm 2.5-4.0 LVOT Diameter 1.9 cm LV Mass (2D Cubed) 213.90 g 88.00-224.00 LV Mass Index (2D Cubed) 83 g/m2 49-115 Relative Wall Thickness (2D) 0.43 <=0.42 IVS/LVIW Diastolic Thickness (2D) 1.00 0.00-1.50 LV Fractional Shortening/Ejection Fraction 2D/MM LV Fractional Shortening (2D) 37 % 25-43 LV EF (2D Teichholz) 67 % Atria Name Value Normal LA Dimensions LA Volume (4C A-L) 45 ml LA Volume (BP A-L) 58 ml Left Ventricle Left ventricular chamber dimension is normal. Left ventricular systolic function is normal with visually estimated ejection fraction of 60-65%. There is mild concentric hypertrophy noted in the left ventricle. Left ventricular segmental wall motion is normal. There is grade I diastolic dysfunction in the left ventricle. Right Ventricle Right ventricular chamber dimension is normal. Right ventricular systolic function is normal. Left Atrium Left atrial chamber dimension is normal. Right Atrium Right atrial chamber dimension is normal. Aortic Valve The aortic valve is trileaflet. There is no aortic valve sclerosis. There is no aortic valve stenosis with a peak velocity of 122 cm/s, mean gradient of 3 mmHg, and aortic valve area of 3.2 cm2. There is no aortic valve regurgitation. Pulmonic Valve The pulmonic valve is normal. There is no pulmonic valve stenosis. There is no pulmonic regurgitation. Mitral Valve The mitral valve has normal leaflets. There is no mitral valve stenosis. There is no mitral valve regurgitation. Tricuspid Valve The tricuspid valve leaflets are normal. There is no tricuspid valve stenosis. There is trace tricuspid valve regurgitation. No pulmonary hypertension, estimated pulmonary arterial systolic pressure is 17 mmHg and systemic blood pressure of 145 mmHg in systole. Pericardium/Pleural The pericardium appears normal. There is no pericardial effusion. No pleural effusion visualized. Inferior Vena Cava Dilated inferior vena cava with >50% collapse upon inspiration consistent with normal right atrial pressure, 8 mmHg. Aorta The aortic measurements are indexed to age and body surface area. The prox ascending aorta is mildly dilated measuring 3.7 cm with an index of 1.4 cm/m2. The aortic root at the sinus of Valsalva is mildly dilated. Summary 1. Left ventricle size is normal and systolic function is normal. Estimated ejection fraction is 60-65%. There is grade I diastolic dysfunction. There is mild concentric hypertrophy noted. 2. Right ventricle chamber size is normal and systolic function is normal. Estimated RVSP is 17 mmHg. 3. The aortic root at the sinus of Valsalva is mildly dilated. 4. The prox ascending aorta is mildly dilated measuring 3.7 cm with an index of 1.4 cm/m2. 5. There is trace tricuspid valve regurgitation. 6. Dilated IVC with estimated RA pressure 8 mmHg. Report Signatures Finalized by Holland Rosales on 08/02/2025 05:09 PM
[2025-08-01 19:05] LABS: Collection Type, Urine Clean Catch; Squamous Epithelial Cell,Urine 0 /hpf (0-5)
[2025-08-01 19:10] LABS: Bilirubin,Urine Negative (Negative); Blood,Urine Negative (Negative); Clarity,Urine Clear (Clear/Hazy); Color,Urine Lt-Yellow (Lt Yel-Yel); Culture Indicated,Urine Not Indicated; Glucose, Urine 3+ (Negative); Ketones,Urine Negative (Negative); Leukocyte Esterase,Urine Negative (Negative); Nitrite,Urine Negative (Negative); PH,Urine 6.5 (5.0-7.0); Protein,Urine Negative (Neg - Trace); RBC,Urine < 1 /hpf (0-3); Specific Gravity,Urine 1.017 (1.001-1.035); Urobilinogen,Urine Negative mg/dL (0.0-1.0); WBC,Urine < 1 /hpf (0-5)
[2025-08-01 19:14] LABS: Amphetamine/Methamp Scrn,U Negative (Negative); Barbiturate Screen,Urine Negative (Negative); Benzodiazepines Screen,Urine Negative (Negative); Benzoylecgonine Screen, Ur Negative (Negative); Fentanyl Screen,Urine Negative (Negative); Opiate Screen,Urine Negative (Negative); THC Screen,Urine Negative (Negative)
[2025-08-02] VITALS (24 sets, daily range): BP systolic 124–175; BP diastolic 62–114; PULSE 56–82; RESP 12–996; TEMP 36.3–36.9; O2SAT 93–98; BMI 32.9
[2025-08-02 00:22] LABS: Troponin I 0.102 ng/mL (0.0-0.045)
[2025-08-02 00:23] LABS: Partial Thromboplastin Time 43.6 Seconds (22.0-36.0)
[2025-08-02] MEDS: HEPARIN SOD INJ 5000 UNIT/ML VIAL 2000 UNIT IVP (00:35)
[2025-08-02 06:48] LABS: Basophils # (Auto) 0.1 Thou/mm3 (0.0-0.2); Basophils % (Auto) 2 % (0-2.5); Eosinophils # (Auto) 0.2 Thou/mm3 (0.0-0.5); Eosinophils % (Auto) 3 % (0-10); Hematocrit 46.0 % (41.0-53.0); Hemoglobin 16.1 g/dL (13.5-16.0); Immature Granulocytes Auto 0.01 Thou/mm3 (0.00-0.00); Lymphocytes # (Auto) 2.5 Thou/mm3 (1.0-4.8); Lymphocytes % (Auto) 42 % (10-50); Mean Corpuscular HGB Conc 35.0 g/dl (31.0-37.0); Mean Corpuscular Hemoglobin 29.8 pg (25.0-35.0); Mean Corpuscular Volume 85 fL (80-100); Monocytes # (Auto) 0.4 Thou/mm3 (0.0-0.8); Monocytes % (Auto) 6 % (0-12); Neutrophils # (Auto) 2.7 Thou/mm3 (1.8-7.7); Neutrophils % (Auto) 47 % (37-80); Nucleated Red Blood Cell # 0.00 Thou/mm3 (0.00-0.00); Nucleated Red Blood Cell % 0 /100 WBC (0); Platelet Count 179 Thou/mm3 (140-440); RDW Standard Deviation 38.3 fL (35.1-43.9); Red Blood Count 5.40 Miln/mm3 (4.50-5.90); White Blood Count 5.8 Thou/mm3 (3.8-10.6)
[2025-08-02 07:25] LABS: Partial Thromboplastin Time 55.5 Seconds (22.0-36.0)
[2025-08-02 07:29] LABS: Anion Gap 9 (7-16); BUN/Creatinine Ratio 10 Ratio (12-20); Blood Urea Nitrogen 12 mg/dL (9-23); Calcium 9.2 mg/dL (8.3-10.6); Carbon Dioxide 27.0 mMol/L (20.0-31.0); Cardiac Risk Estimate 5.0 RATIO (4.0-6.7); Chloride 108 mMol/L (98-107); Cholesterol 205 mg/dL (132-200); Creatinine (Component) 1.2 mg/dL (0.6-1.3); Estimated Creatinine Clearance 102.6 mL/min (>60); Glucose 105 mg/dL (74-106); HDL Cholesterol 41 mg/dL (40-60); LDL Cholesterol,Calculated 146 mg/dL (0-130); Magnesium 2.3 mg/dL (1.6-2.6); Osmolality,Calculated 286 (275-295); Phosphorous 3.1 mg/dL (2.4-5.1); Potassium 4.4 mMol/L (3.4-5.1); Sodium 144 mMol/L (136-145); Thyroid Stimulating Hormone 3.17 uIU/mL (0.55-4.78); Triglycerides 91 mg/dL (30-150); eGFR > 60 See Note
[2025-08-02 07:30] LABS: Glucose Estimated Average 108 mg/dL (80-131); Hemoglobin A1C 5.4 % Hgb (4.8-6.0)
[2025-08-02 07:31] LABS: Troponin I 0.089 ng/mL (0.0-0.045)
[2025-08-02] MEDS: SODIUM CHLORIDE 0.9% 1000 ML 500 ML 100 ML IV (11:28)
--- NOTE | 2025-08-02 11:44 | PC.NURSE ---
1144 patient is awake, alert, breathing unlabored, s/p LHC by dr. 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 Heparin drip discontinued, patient to start aspirin 81mg and plavix 75mg daily starting tomorrow.
[2025-08-02 18:05] LABS: Troponin I 0.103 ng/mL (0.0-0.045)
--- NOTE | 2025-08-02 19:38 | ESPR_ITS ---
<Statement entered by Guy Delgado MD - 08/03/25 15:42> Patient seen and examined at bedside. I discussed and supervised with the quality intern physician who took care of this patient. I personally saw and examined the patient. I agree with most of the assessment and plan. Plan of care discussed with attending Dr. Niño. Guy Delgado MD PGY-2 Documentation for date of: 08/02/25 Subjective Subjective Interval history: Patient was seen and examined at bedside. No acute events took place overnight. Patient denies having had any chest pain, pressure, palpitations, SOB, or lightheadedness/dizziness since his admission. Patient is scheduled for routine angiography and/or PCI at 9am. Exam Vital Signs Temp Pulse Resp BP Pulse Ox O2 Del Method 97.4 F 78 24 H 128/82 98 Room Air 08/02/25 16:00 08/02/25 16:00 08/02/25 16:00 08/02/25 16:00 08/02/25 16:00 08/02/25 16:00 Narrative Exam General: Alert and oriented x3, No apparent distress. Skin: Intact, Warm, no rashes. HEENT: Normocephalic, Atraumatic. Normal neck range of motion, Supple. Trachea midline. Respiratory: Lungs are clear to auscultation. Breath sounds are equal bilaterally with good, symmetric chest expansion. Cardiovascular: RRR, normal S1, S2, No murmurs. Distal pulses 2+ Abdomen: Abdomen non-distended, without erythema, or lesions. Normotensive bowel sounds x4. Percussion tympanic. Palpation soft, nontender in all four quadrants. No organomagely. Absent rigidity, guarding, or rebound. Musculoskeletal/Extremities: No erythema, swelling, tenderness of any joints. No edema of BLE. DP pulses +2/3 b/l. Full active ROM of all four extremities. Neurologic: NEURO: Oriented x3, cranial nerves II to XII grossly intact. Muscle strength 5/5 on UE and LE b/l, Moves extremities x4. Sensation intact to gross touch along C6-T1 and L2-S1 dermatomes. No focal neurologic deficits noted Psych: Thoughts linear and responses appropriate. Objective Labs 08/02/25 06:35 08/02/25 06:35 Labs: Laboratory Results - last 24 hr 08/01/25 08/02/25 08/02/25 23:25 00:00 06:35 WBC 5.8 RBC 5.40 Hgb 16.1 H Hct 46.0 MCV 85 MCH 29.8 MCHC 35.0 RDW Std Deviation 38.3 Plt Count 179 Neut % (Auto) 47 Lymph % (Auto) 42 [place] % (Auto) 6 Eos % (Auto) 3 Baso % (Auto) 2 Neut # (Auto) 2.7 Lymph # (Auto) 2.5 Pitt # (Auto) 0.4 Eos # (Auto) 0.2 Baso # (Auto) 0.1 Immature Gran # (Auto) 0.01 H Absolute Nucleated RBC 0.00 Immature Gran % 0 Nucleated RBC % 0 APTT 43.6 H D 55.5 H D Sodium 144 Potassium 4.4 D Chloride 108 H Carbon Dioxide 27.0 Anion Gap 9 BUN 12 Creatinine 1.2 Estim Creat Clear Calc 102.6 eGFR > 60 BUN/Creatinine Ratio 10 L Glucose [address] Glu mg/dL 108 Hemoglobin A1c 5.4 Calculated Osmolality 286 Calcium 9.2 Phosphorus 3.1 Magnesium 2.3 Troponin I 0.102 H* 0.089 H* Triglycerides 91 Cholesterol 205 H LDL Cholesterol, Calc 146 H HDL Cholesterol 41 Cholesterol/HDL Ratio 5.0 TSH 3.17 08/02/25 17:19 WBC RBC Hgb Hct MCV MCH MCHC RDW Std Deviation Plt Count Neut % (Auto) Lymph % (Auto) Pitt % (Auto) Eos % (Auto) Baso % (Auto) Neut # (Auto) Lymph # (Auto) Pitt # (Auto) Eos # (Auto) Baso # (Auto) Immature Gran # (Auto) Absolute Nucleated RBC Immature Gran % Nucleated RBC % APTT Sodium Potassium Chloride Carbon Dioxide Anion Gap BUN Creatinine Estim Creat Clear Calc eGFR BUN/Creatinine Ratio Glucose Estimated Ave Glu mg/dL Hemoglobin A1c Calculated Osmolality Calcium Phosphorus Magnesium Troponin I 0.103 H* Triglycerides Cholesterol LDL Cholesterol, Calc HDL Cholesterol Cholesterol/HDL Ratio TSH Quality Measures Quality Measures VTE prophylaxis Assessment & Plan Assessment Current Active Medications: Generic Name Dose Route Start Last Admin Trade Name Freq PRN Reason Stop Dose Admin Acetaminophen 500 mg 08/01/25 18:19 Acetaminophen 500 Mg Tablet PO 08/31/25 18:18 Q6HR PRN pain 1-3/10 or fever >100.4 Amlodipine Besylate 5 mg 08/02/25 09:00 08/02/25 08:36 Amlodipine Besylate 5 Mg Tablet PO 09/01/25 08:59 5 mg DAILY DARREN Administration Aspirin 81 mg 08/03/25 09:00 Aspirin 81 Mg Chew PO 09/02/25 08:59 QDAY DARREN Atorvastatin Calcium 80 mg 08/02/25 21:00 Atorvastatin Calcium 20 Mg Tablet PO 09/01/25 20:59 HS DARREN Clopidogrel Bisulfate 75 mg 08/03/25 09:00 Clopidogrel Bisulfate 75 Mg Tablet PO 09/02/25 08:59 QDAY DARREN Lisinopril 10 mg 08/02/25 09:00 08/02/25 08:36 Lisinopril 2.5 Mg Tablet PO 09/01/25 08:59 10 mg DAILY DARREN Administration Protocol Sennosides 1 tab 08/01/25 18:43 Senna Tablet PO 08/31/25 18:42 QDAY PRN constipation Protocol Plan 50-year-old male with medical history of hypertension, hypercholesterolemia, and MASLD presented to the ED on 08/01 after being instructed by his PCP for abnormal findings on EKG and labs. Patient admitted for work up of possible NSTE-ACS. #Acute Coronary Syndrome #NSTEMI type I #Chest Pain, resolved #Troponinemia, resolved Chest x-ray showed no active disease. Normal heart size, clear lungs, and intact osseous structures EKG showed normal sinus rhythm, incomplete right bundle branch block T wave inversion in lead III and V1. Deep Q waves in lead III. Patient given KCl PO 20mEq for K+ 3.9 troponin 1.060 which trended up to 0.086 in 4 hours, and peaked at 0.102, before trending down to 0.089 ? TG 91, Ch 205, LDL 146, HDL 41 ? Hgb A1c 5.4 ? TSH 3.17 ASCVD risk 6.3% in the next 10y Plan: - Cardiology, Dr Rosales consulted, appreciate recs - Discontinued therapeutic anticoagulation with UFH per ACS protocol, 12u/kg/h, with IVB 4000u - Aspirin PO 324mg to chew (loading dose, 08/01); followed by Aspirin 81mg Qday (08/02 - ) - Clopidogrel PO 300mg (loading dose, 08/01); followed by Clopidogrel PO 75mg Qday (08/02 - ) - Metoprolol succinate PO 25mg - Atorvastatin PO 80mg Qday - Troponin checks Q6h - Echo ordered for assessment of wall motion abnormalities - Maintain K+ >4 and Mg >2 - Continuous pulse oxometry - Strict I&O - Admit to Telemetry - O2 delivery through NC 2L PRN #Hypertension Patient is on amlodipine-benazapril 5-10mg at home -amlodipine PO 5mg Qday -lisinopril PO 10mg daily #MASLD -to be followed as outpatient Health Maintenance: Disposition: Telemetry monitoring Diet: cardiac PPx DVT: heparin per ACS protocol Code Status: full This case was discussed with my attending physician, Dr. Niño, and senior resident, Dr Blue. Sohan Lynch, DO PGY I Disclaimer: This note was dictated by speech recognition. Minor errors in site leader may be present due to voice recognition software. Attending Provider Attestation/Addendum I have seen and examined the patient. I was physically present for the funes portions of the services provided including history, physical exam, diagnosis, treatment plans and orders. I agree with assessment and plan of care as documented by residents. Even though this this note was carefully revised there may still be minor errors in site leader due to voice recognition software. Eddy Niño MD
[2025-08-02] MEDS: ATORVASTATIN CALCIUM 20 MG TABLET 80 MG PO (20:21)
--- NOTE | 2025-08-02 22:54 | ESPR_ITS ---
<Statement entered by Holland Rosales MD - 08/04/25 18:08> I evaluated the patient and examined with resident team ok to discharge and see me 1 week Documentation for date of: 08/02/25 Subjective Subjective Interval history: Patient was seen in hospital bed denying having any concerning cardiac symptoms since admission. Patient's troponin peaked at 0.1; however, due to patient's initial typical chest pain decision was made to go forward with a left heart catheterization. During left heart catheterization there was clear evidence of multivessel disease with proximal LAD having greater than 90% stenosis. Successful PCI was completed of the proximal LAD and patient tolerated procedure well. Will monitor patient overnight and if he remains asymptomatic can be discharged with close follow-up with cardiology clinic within 1 week. Exam Vital Signs Temp Pulse Resp BP Pulse Ox O2 Del Method 98.5 F 72 16 128/76 94 L Room Air 08/02/25 20:00 08/02/25 20:32 08/02/25 20:32 08/02/25 20:00 08/02/25 20:00 08/02/25 20:00 Narrative Exam Physical Exam: GENERAL: Awake, answers questions appropriately, appears stated age HEENT: NC/AT. Moist mucosa. PERRLA/EOMI. right eye mild ecchymosis CARDIO: Heart RRR, no obvious murmurs, no JVD. PULM: No coughing or visible SOB. Lungs CTA B/L. GI: Abdomen soft, NT/ND, +BS. SKIN/MSK/EXT: Extensive tattoos on bilateral upper extremities, no wounds/discoloration/rashes/edema/amputations noted. +Pedal pulses present B/L. NEURO: Oriented x3, Moves extremities x4, no focal neurologic deficits noted Objective Labs 08/02/25 06:35 08/02/25 06:35 Labs: Laboratory Results - last 24 hr 08/01/25 08/02/25 08/02/25 23:25 00:00 06:35 WBC 5.8 RBC 5.40 Hgb 16.1 H Hct 46.0 MCV 85 MCH 29.8 MCHC 35.0 RDW Std Deviation 38.3 Plt Count 179 Neut % (Auto) 47 Lymph % (Auto) 42 [place]ye % (Auto) 6 Eos % (Auto) 3 Baso % (Auto) 2 Neut # (Auto) 2.7 Lymph # (Auto) 2.5 Nye # (Auto) 0.4 Eos # (Auto) 0.2 Baso # (Auto) 0.1 Immature Gran # (Auto) 0.01 H Absolute Nucleated RBC 0.00 Immature Gran % 0 Nucleated RBC % 0 APTT 43.6 H D 55.5 H D Sodium 144 Potassium 4.4 D Chloride 108 H Carbon Dioxide 27.0 Anion Gap 9 BUN 12 Creatinine 1.2 Estim Creat Clear Calc 102.6 eGFR > 60 BUN/Creatinine Ratio 10 L Glucose [address] Glu mg/dL 108 Hemoglobin A1c 5.4 Calculated Osmolality 286 Calcium 9.2 Phosphorus 3.1 Magnesium 2.3 Troponin I 0.102 H* 0.089 H* Triglycerides 91 Cholesterol 205 H LDL Cholesterol, Calc 146 H HDL Cholesterol 41 Cholesterol/HDL Ratio 5.0 TSH 3.17 08/02/25 17:19 WBC RBC Hgb Hct MCV MCH MCHC RDW Std Deviation Plt Count Neut % (Auto) Lymph % (Auto) [place]ye % (Auto) Eos % (Auto) Baso % (Auto) Neut # (Auto) Lymph # (Auto) Nye # (Auto) Eos # (Auto) Baso # (Auto) Immature Gran # (Auto) Absolute Nucleated RBC Immature Gran % Nucleated RBC % APTT Sodium Potassium Chloride Carbon Dioxide Anion Gap BUN Creatinine Estim Creat Clear Calc eGFR BUN/Creatinine Ratio Glucose Estimated Ave Glu mg/dL Hemoglobin A1c Calculated Osmolality Calcium Phosphorus Magnesium Troponin I 0.103 H* Triglycerides Cholesterol LDL Cholesterol, Calc HDL Cholesterol Cholesterol/HDL Ratio TSH Quality Measures Quality Measures VTE prophylaxis Assessment & Plan Assessment Current Active Medications: Generic Name Dose Route Start Last Admin Trade Name Patt PRN Reason Stop Dose Admin Acetaminophen 500 mg 08/01/25 18:19 Acetaminophen 500 Mg Tablet PO 08/31/25 18:18 Q6HR PRN pain 1-3/10 or fever >100.4 Amlodipine Besylate 5 mg 08/02/25 09:00 08/02/25 08:36 Amlodipine Besylate 5 Mg Tablet PO 09/01/25 08:59 5 mg DAILY DARREN Administration Aspirin 81 mg 08/03/25 09:00 Aspirin 81 Mg Chew PO 09/02/25 08:59 QDAY DARREN Atorvastatin Calcium 80 mg 08/02/25 21:00 08/02/25 20:21 Atorvastatin Calcium 20 Mg Tablet PO 09/01/25 20:59 80 mg HS DARREN Administration Clopidogrel Bisulfate 75 mg 08/03/25 09:00 Clopidogrel Bisulfate 75 Mg Tablet PO 09/02/25 08:59 QDAY DARREN Lisinopril 10 mg 08/02/25 09:00 08/02/25 08:36 Lisinopril 2.5 Mg Tablet PO 09/01/25 08:59 10 mg DAILY DARREN Administration Protocol Sennosides 1 tab 08/01/25 18:43 Senna Tablet PO 08/31/25 18:42 QDAY PRN constipation Protocol Plan 50-year-old male with past medical history of hypertension, hypercholesterolemia, MASLD presenting to the ED with an episode of chest pain, will be admitted for the workup of acute coronary syndrome with cardiology consultation. #ACS #NSTEMI type I 59-72?points ALEX Score 1-1.6?% Probability of from admission to 6 months 5.4% Risk of cardiovascular event (coronary or stroke or non-fatal NC or stroke) in next 10 years. Patient does have a risk factor of high blood pressure, obesity but apparently lives a pretty active lifestyle and does not get any chest discomfort on activity In the ED, patient had mild elevation of troponin which is uptrending but still not significant Chest x-ray was negative EKG showed incomplete right bundle branch block without any concerning ST changes Patient's troponin peaked at 0.1 since downtrending; however, due to patient's typical chest pain findings left heart catheterization was completed Left heart catheterization showed multivessel disease greater than 90% stenosis of the proximal LAD; successful PCI was completed Patient also has some degree of myocardial bridging Plan: Plavix 75 mg p.o. daily and aspirin 81 mg p.o. daily High intensity statin Follow-up within 1 week in cardiology clinic #Aortic root dilation #Ascending aorta dilation, mild #Grade 1 diastolic dysfunction As seen on echo obtained on 08/01/2025 Patient has left ventricular size and function with an ejection fraction of 60 to 65% Mild tricuspid regurgitation noted Plan: Follow-up with cardiology clinic within 1 week as above #Hypertension, primary Chronic medical condition Patient is apparently on Amlodipine 5?benazepril 10 mg capsule Plan: Continue monitoring blood pressure Continue home medication on discharge #Hyperlipidemia #MASLD #Obesity Rest of medical problems to be managed by hospitalist team Patient seen and assessed with attending Dr. Bobby Causey, DO PGY-2 Internal Medicine - GME
[2025-08-03] VITALS (8 sets, daily range): BP systolic 116–138; BP diastolic 76–86; PULSE 60–82; RESP 12–97; TEMP 36.4–37.4; O2SAT 95–97
[2025-08-03 06:11] LABS: INR 1.0 (0.9-1.3); Partial Thromboplastin Time 28.4 Seconds (22.0-36.0); Prothrombin Time 10.9 Seconds (9.0-12.2)
[2025-08-03 06:13] LABS: Basophils # (Auto) 0.1 Thou/mm3 (0.0-0.2); Basophils % (Auto) 1 % (0-2.5); Eosinophils # (Auto) 0.1 Thou/mm3 (0.0-0.5); Eosinophils % (Auto) 2 % (0-10); Hematocrit 47.3 % (41.0-53.0); Hemoglobin 16.4 g/dL (13.5-16.0); Immature Granulocytes Auto 0.02 Thou/mm3 (0.00-0.00); Lymphocytes # (Auto) 1.8 Thou/mm3 (1.0-4.8); Lymphocytes % (Auto) 29 % (10-50); Mean Corpuscular HGB Conc 34.7 g/dl (31.0-37.0); Mean Corpuscular Hemoglobin 29.5 pg (25.0-35.0); Mean Corpuscular Volume 85 fL (80-100); Monocytes # (Auto) 0.4 Thou/mm3 (0.0-0.8); Monocytes % (Auto) 7 % (0-12); Neutrophils # (Auto) 3.9 Thou/mm3 (1.8-7.7); Neutrophils % (Auto) 61 % (37-80); Nucleated Red Blood Cell # 0.00 Thou/mm3 (0.00-0.00); Nucleated Red Blood Cell % 0 /100 WBC (0); Platelet Count 196 Thou/mm3 (140-440); RDW Standard Deviation 38.5 fL (35.1-43.9); Red Blood Count 5.55 Miln/mm3 (4.50-5.90); White Blood Count 6.3 Thou/mm3 (3.8-10.6)
[2025-08-03 06:15] LABS: Anion Gap 10 (7-16); BUN/Creatinine Ratio 11 Ratio (12-20); Blood Urea Nitrogen 13 mg/dL (9-23); Calcium 9.0 mg/dL (8.3-10.6); Carbon Dioxide 24.9 mMol/L (20.0-31.0); Chloride 108 mMol/L (98-107); Creatinine (Component) 1.2 mg/dL (0.6-1.3); Estimated Creatinine Clearance 102.6 mL/min (>60); Glucose 102 mg/dL (74-106); Magnesium 2.4 mg/dL (1.6-2.6); Osmolality,Calculated 285 (275-295); Phosphorous 3.4 mg/dL (2.4-5.1); Potassium 4.0 mMol/L (3.4-5.1); Sodium 143 mMol/L (136-145); eGFR > 60 See Note
--- NOTE | 2025-08-03 08:07 | ESDS_ITS ---
<Statement entered by Guy Delgado MD - 08/03/25 16:26> Patient seen and examined at bedside. I discussed and supervised with the internet technology manager physician who took care of this patient. I personally saw and examined the patient. I agree with most of the assessment and plan. Plan of care discussed with attending Dr. Niño. Guy Delgado MD PGY-2 Planned Discharge Date 08/03/25 DS: Providers Provider Date of admission: 08/01/25 17:20 Primary care physician: Jaycee Milner NP Admitting Provider: Eddy Niño MD Attending Provider on Admission: Eddy Niño MD Consults: 08/01/25 18:46 Consult to Cardiology Urgent Comment: ACS Consulting Provider: oHlland Rosales Attending Provider on DC: Eddy Niño MD Discharging Provider: Lupe Yusuf MD DS: Diagnosis Problem List Completed Was Problem List Reviewed/Reconciled?: Yes Hospital Course Hospital Course Hospital course: 50-year-old male with past medical history of hypertension, hypercholesterolemia, MASLD presented from PCP office for abnormal EKG and labs. Admitted for NSTEMI-ACS. In ED, EKG showed incomplete right bundle branch block, T wave inversion in lead III and V1, Deep Q-wave in lead III, troponin peaked at 1.060. Patient was given medication management for NSTEMI and admitted to hospital. In hospital, left heart catheterization showed proximal LAD > 90% stenosis, LAVERN inserted. Patient's chest pain and symptoms resolved after left heart cath. Cardiology recommended medication management as below and follow-up outpatient in 1 week. Patient is stable and medically clear for discharge. Return precaution given. #Acute Coronary Syndrome #NSTEMI type I s/p LHC with LAVERN #Chest Pain #Hypertension #MASLD Instruction: You have been started on the following medications: - Aspirin 81 mg once daily - Plavix 75 mg once daily - Atorvastatin 80 mg once dialy Please continue taking all other medications as previously prescribed. Please follow up with your primary care doctor in 7-10 days. Please follow up with director cardiovascular Dr. Rosales outpatient in 1 [phone] Return to ED if you develop new or worsening symptoms. Health Maintenance: Disposition: Telemetry monitoring Diet: cardiac PPx DVT: heparin per ACS protocol Code Status: full This case was discussed with my attending physician, Dr. Niño, and senior resident, Dr Delgado. Lupe Yusuf, DO PGY I Status at Discharge Overall status at discharge: patient is back to baseline Time Spent with Patient Time attestation: Total time spent providing and/or coordinating discharge services: 35 minutes Time spent: Greater than 30 minutes Exam Vital Signs Temp Pulse Resp BP Pulse Ox O2 Del Method 97.6 F 60 22 H 121/79 96 Room Air 08/03/25 04:00 08/03/25 04:00 08/03/25 04:00 08/03/25 04:00 08/03/25 04:00 08/03/25 04:00 Narrative Exam General: Alert and oriented x3, No apparent distress. Skin: Intact, Warm, no rashes. HEENT: Normocephalic, Atraumatic. Normal neck range of motion, Supple. Trachea midline. Respiratory: Lungs are clear to auscultation. Breath sounds are equal bilaterally with good, symmetric chest expansion. Cardiovascular: RRR, normal S1, S2, No murmurs. Distal pulses 2+ Abdomen: Abdomen non-distended, without erythema, or lesions. Normotensive bowel sounds x4. Percussion tympanic. Palpation soft, nontender in all four quadrants. No organomagely. Absent rigidity, guarding, or rebound. Musculoskeletal/Extremities: No erythema, swelling, tenderness of any joints. No edema of BLE. DP pulses +2/3 b/l. Full active ROM of all four extremities. Neurologic: NEURO: Oriented x3, cranial nerves II to XII grossly intact. Muscle strength 5/5 on UE and LE b/l, Moves extremities x4. Sensation intact to gross touch along C6-T1 and L2-S1 dermatomes. No focal neurologic deficits noted Psych: Thoughts linear and responses appropriate. Discharge Plan Plan Patient Disposition: HOME (Self Care) Patient condition on transfer: Stable Care Plan Goals: You have been started on the following medications: - Aspirin 81 mg once daily - Plavix 75 mg once daily - Atorvastatin 80 mg once dialy Please continue taking all other medications as previously prescribed. Please follow up with your primary care doctor in 7-10 days. Please follow up with director cardiovascular Dr. Rosales outpatient in 1 [phone] Return to ED if you develop new or worsening symptoms. Prescriptions/Referrals Prescriptions/Med Rec: New aspirin [Children's Aspirin] 81 mg Tablet,Chewable 81 mg PO QDAY 30 Days Qty: 30 2RF clopidogrel 75 mg Tablet 75 mg PO QDAY 30 Days Qty: 30 2RF atorvastatin [Lipitor] 80 mg tablet 80 mg PO QPM 30 Days Qty: 30 2RF Continued Oxycodone/Acetaminophen (Percocet) 1 TAB tablet 1 tab PO Q6HR PRN (Reason: PAIN SCALE 4-6 (Moderate) Qty: 20 0RF amlodipine-benazepril 5-10 mg capsule 1 cap PO DAILY Referrals: Jaycee Milner NP [Primary Care Provider] Holland Rosales MD [Physician, Cardiology] Patient/Caregiver Discharge Instructions Other Discharge Diet Instructions: CARDIAC DIET Education Materials: Aspirin Oral Tablet 81 mg, Plavix Oral Tablet 75 mg, Coronary Angioplasty Stenting Dc, Preventing Surgical Site Infections, Eating Heart-Healthy Foods Print Language: Albanian Stand Alone Forms: [place] Award Info., Patient Portal Info Letter Discharge Order Discharge Orders: Discharge (Routine); Ordered 08/03/25 Ordered By: Guy Delgado Quality Discharge Quality Measures VTE prophylaxis MD Attestestation MD Attestation I have seen and examined the patient. I was physically present for the funes portions of the services provided including history, physical exam, diagnosis, treatment plans and orders. I agree with assessment and plan of care as documented by residents. Even though this this note was carefully revised there may still be minor errors in cross tie maker due to voice recognition software. Eddy Niño MD
[2025-08-03] MEDS: ASPIRIN 81 MG CHEW PO (08:14)
[2025-08-03] MEDS: CLOPIDOGREL BISULFATE 75 MG TABLET PO (08:15)
[2025-08-05 14:59] LABS: ACT (CATH LAB ONLY) 269.0 Seconds (89-169)
--- NOTE | 2025-08-06 07:31 | ESOP_ITS ---
RE: BRET QUEVEDO : 1975 DATE OF OPERATION: 08/02/2025 DATE OF PROCEDURE: 08/02/2025. PROCEDURES PERFORMED: 1. Emergency diagnostic left heart cardiac catheterization, selective coronary angiogram, left ventriculogram (CPT 72105). 2. Emergency PCI stent placement proximal left anterior descending artery, placement of drug-eluting stent x2 with diagnosis of acute myocardial infarction (CPT code 31686). 3. Conscious sedation 1 hour duration. 4. Ultrasound-guided access right radial artery and documentation. DIAGNOSIS: Acute gkr-HD-vdrajsw elevation myocardial infarction, ST-segment elevation myocardial infarction, 99% left anterior descending artery occlusion. INDICATION: The patient is a 50-year-old male with history of wzbigzvu-um-ohsafg hypertension, hypercholesterolemia, came to the hospital yesterday with severe substernal chest pain last night with severe discomfort lasting for more than an hour, troponin elevation. The nonspecific ST changes in EKG, this patient has persistent angina and troponin elevation, acute myocardial infarction. Emergency coronary angiogram, cardiac catheterization recommended as a patient is a candidate for coronary intervention (PCI). PROCEDURE DETAIL: The patient was brought to the cardiac catheterization laboratory. He was given 2 mg Versed, 100 mcg fentanyl by conscious sedation. Right radial artery was cannulated with micropuncture technique. Local anesthesia was given. Ultrasound guidance was used to cannulate the right radial artery. A 6-Faroese Glidesheath was introduced. Selective right coronary angiogram was performed by TIG 4 diagnostic catheter. Left heart catheterization performed with TIG 4 diagnostic catheter. Selective left coronary angiogram performed by JL 3.5 diagnostic catheter. Subsequently, intervention undertaken. HEMODYNAMICS: Left ventricular pressure 110/5, EDP is 10. Aortic pressure 110/70. No gradient across the aortic valve. FINDINGS: Left ventricular angiogram showed normal left ventricular wall motion, ejection fraction 65%. Coronary angiogram showed following findings: Right coronary angiogram showed evidence of jlzm-rk-gmfgcxuh plaque in the proximal midsegment, tortuosity. Distal right coronary artery showed evidence of about a 60-70% stenosis just before bifurcation. Posterolateral branch showed wxyv-je-xvnsgbkp plaque, 30% stenosis. Posterior descending artery showed multiple segments of 50-60% narrowing, but TERESA flow 3 is present. LEFT CORONARY ANGIOGRAM: Left main coronary is normal. 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 Circumflex artery is nondominant, gives off obtuse marginal branch, shows a moderate 60-70% stenosis. Next, there is evidence of collaterals from right coronary artery filling the distal LAD. Next, following diagnostic procedure, intervention undertaken. LAD appears to be culprit lesion. The patient was given IV heparin, initial radial cocktail with 3000 units. Subsequently, the patient was given 7000 heparin and total of 10,000. ACT was 270, therapeutic range. Aspirin, Plavix loading dose is given. A 6-Faroese JL 3.5 guiding catheter was used, could not cannulate. I proceeded with a 6-Faroese EBU 3.5 guiding catheter and using a Guidezilla extension, able to cannulate the left main coronary artery. A 0.014 Runthrough guidewire was used to cross the lesion successfully and subsequently predilate the lesion performed with 3 mm x 12 Euphora Medtronic balloon. Subsequently, 3.5 x 12 mm and 3.5 x 8 mm 2 drug-eluting stents were delivered in the proximal LAD subsequently with mild overlap. A 4 mm noncompliant balloon Euphora was used to dilate both stents successfully with 14 atmospheric pressures with TERESA 3 flow. Final angiogram showed widely patent left anterior descending artery, but mid left anterior descending artery and distal segment showed evidence of a 15 mm length myocardial bridging clearly seen. TR band was applied. Hemostasis was secured. SUMMARY OF FINDINGS: Consistent with: 1. Multivessel coronary artery disease, evidence of culprit vessel angioplasty stent placement. 2. Successful primary angioplasty stent placement of the proximal left anterior descending artery. 99% stenosis, underwent successful PCI stent placement. Drug-eluting stents delivered 3.5 x 12, 3.5 x 8 x 8. Preprocedure stenosis 99%, postprocedure stenosis 0%. Preprocedure TERESA flow is 2, postprocedure TERESA flow 3. 3. Moderate stenosis involving the distal right coronary artery, PDA, posterolateral branches. 4. Moderate 60-70% stenosis of circumflex artery midsegment. RECOMMENDATIONS: The patient's LDL goal is under 140. Aggressive statin therapy, 80 mg atorvastatin will be given, and aspirin and Plavix will be given. Continue blood pressure management including benazepril and amlodipine. The patient will have LDL cholesterol goal of 55. After recovery, the patient will have a cardiac stress test nuclear imaging. If there is any inferior wall ischemia, we will consider PCI of the right coronary artery at a later date. The patient can be discharged home tomorrow after 24 hours observation and medical management. DT: 18:49:47 TT: 19:12:00 Ref: [id number] - TID: [id number]
== END 2025-08-03 14:00 | disposition home or self-care (01) | DRG 322 ==
LOC: SERX 16:31 → SERHOLD 17:29 → S2NX 20:45
PROVIDERS: Internal Medicine Cardiovascular Disease; Nurse Practitioner Primary Care; Admitting Provider Student in an Organized Health Care Education/Training Program; Emergency Provider Family Medicine; PCP Nurse Practitioner Family; Visit Provider Student in an Organized Health Care Education/Training Program
PROC: 027035Z Dilation of Coronary Artery, One Artery with Two Drug-eluting Intraluminal Devices, Percutaneous Approach (ICD-10-PCS; principal; 2025-08-02 13:00)
DX: I21.4 Non-ST elevation (NSTEMI) myocardial infarction (principal); Q24.5 Malformation of coronary vessels; I10 Essential (primary) hypertension; E78.00 Pure hypercholesterolemia, unspecified; K76.0 Fatty (change of) liver, not elsewhere classified; I77.810 Thoracic aortic ectasia; E78.5 Hyperlipidemia, unspecified; I45.10 Unspecified right bundle-branch block; I25.10 Atherosclerotic heart disease of native coronary artery without angina pectoris; Z79.02 Long term (current) use of antithrombotics/antiplatelets; Z79.82 Long term (current) use of aspirin
CPT/HCPCS: 36415; 71045; 80048; 80053; 80061; 80307; 81001; 83036; 83735; 83880; 84100; 84443; 84484; 85025; 85347; 85610; 85730; 87635; 93005; 93306; 96365; 96366; 99152; 99153; 99283; A4649; C1725; C1769; C1874; C1887; C1894; J0153; J0168; J0461; J1643; J1644; J2250; J2312; J2371; J2405; J3010; J3490; J7030; Q9967; A9270; J2305

== ENCOUNTER → 2025-08-01 | Outpatient (CLI) | payer BC, SELFPAY ==
[2025-08-01 13:17] LABS: Basophils # (Auto) 0.1 Thou/mm3 (0.0-0.2); Basophils % (Auto) 2 % (0-2.5); Eosinophils # (Auto) 0.1 Thou/mm3 (0.0-0.5); Eosinophils % (Auto) 2 % (0-10); Hematocrit 45.6 % (41.0-53.0); Hemoglobin 15.9 g/dL (13.5-16.0); Immature Granulocytes Auto 0.01 Thou/mm3 (0.00-0.00); Lymphocytes # (Auto) 2.1 Thou/mm3 (1.0-4.8); Lymphocytes % (Auto) 36 % (10-50); Mean Corpuscular HGB Conc 34.9 g/dl (31.0-37.0); Mean Corpuscular Hemoglobin 29.2 pg (25.0-35.0); Mean Corpuscular Volume 84 fL (80-100); Monocytes # (Auto) 0.4 Thou/mm3 (0.0-0.8); Monocytes % (Auto) 7 % (0-12); Neutrophils # (Auto) 3.0 Thou/mm3 (1.8-7.7); Neutrophils % (Auto) 52 % (37-80); Nucleated Red Blood Cell # 0.00 Thou/mm3 (0.00-0.00); Nucleated Red Blood Cell % 0 /100 WBC (0); Platelet Count 211 Thou/mm3 (140-440); RDW Standard Deviation 37.2 fL (35.1-43.9); Red Blood Count 5.44 Miln/mm3 (4.50-5.90); White Blood Count 5.7 Thou/mm3 (3.8-10.6)
[2025-08-01 13:35] LABS: Alanine Aminotransferase 47 U/L (10-49); Albumin, Serum 4.8 gm/dL (3.5-5.0); Albumin/Globulin Ratio 2.8 (1.2-2.2); Alkaline Phosphatase 83 U/L (46-116); Anion Gap 8 (7-16); Aspartate Amino Transferase 33 U/L (0-34); BUN/Creatinine Ratio 15 Ratio (12-20); Bilirubin,Total 0.7 mg/dL (0.3-1.2); Blood Urea Nitrogen 19 mg/dL (9-23); Calcium 9.3 mg/dL (8.3-10.6); Calcium (Corrected) 9.3 mg/dL (8.5-10.1); Carbon Dioxide 27.9 mMol/L (20.0-31.0); Chloride 106 mMol/L (98-107); Creatinine (Component) 1.3 mg/dL (0.6-1.3); Globulin 1.7 gm/dL (2.3-3.5); Glucose 96 mg/dL (74-106); Osmolality,Calculated 285 (275-295); Potassium 4.6 mMol/L (3.4-5.1); Sodium 142 mMol/L (136-145); Total Protein 6.5 gm/dL (5.7-8.2); eGFR > 60 See Note
[2025-08-01 13:36] LABS: Troponin I 0.060 ng/mL (0.0-0.045)
== END | disposition home or self-care (01) ==
LOC: COPL 12:37
PROVIDERS: PCP Family Medicine; Referring Provider Nurse Practitioner Family; Visit Provider Nurse Practitioner Family
DX: R07.9 Chest pain, unspecified (principal)
CPT/HCPCS: 36415; 80053; 84484; 85025